=== PATIENT | male | born 1995 | race Hispanic/Latino ===

== ENCOUNTER 2021-03-04 23:34 | Emergency (ER) | payer SELFPAY ==
[~2021-03-04] VITALS: Ht 195.6 cm; Wt 186.0 kg
[2021-03-04] MEDS ORDERED: SODIUM CHLORIDE 0.9% 1000ML 1,000 ML IV STA ×3 (23:49)
[2021-03-05 00:08] LABS: BASOPHILS # (AUTO) 0.1 (0.0-0.1); BASOPHILS % 0.8 % (0.0-1.0); HEMOGLOBIN 17.1 g/dL (14.0-18.0); LYMPHOCYTES # (AUTO) 1.5 (1.0-3.2); MEAN CORPUSCULAR HEMOGLOBIN 30.3 pg (28-32); MEAN CORPUSCULAR HGB CONC 33.5 g/dL (31-35); MEAN CORPUSCULAR VOLUME 90.4 fL (81-99); MONOCYTES # (AUTO) 1.1 (0.2-0.8); MONOCYTES % 9.1 % (4.4-11.3); NEUTROPHILS # (AUTO) 9.4 (2.1-6.9); NEUTROPHILS % 76.6 % (38.7-80.0); PLATELET COUNT 288 x10e3/uL (140-360); RED BLOOD COUNT 5.64 x10e6/uL (4.3-5.7); RED CELL DISTRIBUTION WIDTH 14.9 % (11.7-14.4)
[2021-03-05 00:26] LABS: ALANINE AMINOTRANSFERASE 240 IU/L (0-55); ALBUMIN 4.1 g/dL (3.5-5.0); ALKALINE PHOSPHATASE 174 IU/L (40-150); BLOOD UREA NITROGEN 11 mg/dL (7-26); BUN/CREATININE RATIO 7 (6-25); CALCIUM 9.1 mg/dL (8.4-10.2); CHLORIDE 109 mmol/L (98-107); CREATININE, SERUM 1.65 mg/dL (0.72-1.25); EST GLOMERULAR FILTRATION RATE 50 ML/MIN (60-); SODIUM 139 mmol/L (136-145)
[2021-03-05 00:29] LABS: ANION GAP 27.9 mmol/L (8-16); POTASSIUM 2.9 mmol/L (3.5-5.1)
[2021-03-05 00:30] LABS: CARBON DIOXIDE < 5 mmol/L (22-29); GLUCOSE 636 mg/dL (74-118)
[2021-03-05] MEDS ORDERED: POTASSIUM CHLORIDE 20 MEQ TAB CR PO ONE ×2 (00:30→00:45)
[2021-03-05] MEDS ORDERED: INSULIN REGULAR, HUMAN 3ML VL 100 UNIT in SODIUM CHLORIDE 0.9% 100 ML 99 ML IV SCH ×2 (00:30)
[2021-03-05] MEDS ORDERED: POTASSIUM CHLORIDE 10MEQ/100ML 100 ML IV ONE ×3 (00:30→02:30)
[2021-03-05] MEDS ORDERED: POTASSIUM CHLORIDE 10MEQ/100ML 200 ML ONE (00:46)
[2021-03-05 01:16] LABS: ABG HCO3 3 mmol/L (22-26); ABG PCO2 10 mmHg (35-45); ABG PH 7.11 (7.35-7.45); ABG PO2 134 mmHg (80-105)
[2021-03-05 01:17] LABS: ABG TCO2 < 5
[2021-03-05] MEDS ORDERED: INSULIN REGULAR, HUMAN 100 UNIT/1 ML 3ML VIAL ONE (01:47)
[2021-03-05] MEDS ORDERED: SODIUM CHLORIDE 0.9% 100 ML ONE (01:49)
[2021-03-05] MEDS ORDERED: DEXTROSE 10% 1,000 ML IV ONE (03:37)
== END 2021-03-05 03:25 | disposition other institution (70) ==
LOC: ER 23:47
DX: E11.10 Type 2 diabetes mellitus with ketoacidosis without coma (principal); E11.65 Type 2 diabetes mellitus with hyperglycemia; R06.02 Shortness of breath; R53.1 Weakness; R94.31 Abnormal electrocardiogram [ECG] [EKG]
CPT/HCPCS: 36415; 36600; 71045; 80053; 82805; 82948; 83880; 85025; 99284; J1817; J3480; J7030; J7050